=== PATIENT | female | born 1950 | race Caucasian/White ===

== ENCOUNTER 2017-02-21 22:32 | Emergency (ER) | payer OTHER ==
[2017-02-21 22:39] VITALS: BP 135/72; PULSE 87; TEMP 100.9; BMI 23.0
--- NOTE | 2017-02-21 22:44 | PDOC ---
History of Present Illness - General Chief Complaint: Cold Symptoms Stated Complaint: FLU LIKE SYMPTOMS Time Seen by Provider: 02/21/17 22:37 - History of Present Illness Initial Comments: This 66-year-old woman with a history of hypertension presents with a one-day history of sore throat/nonproductive cough/ear discomfort/fever. She also has mild body aches. No history of wheezing/shortness of breath. No exposure to school-aged children. No recent travel. No gastrointestinal symptoms noted. Patient's adult daughter, with whom she lives, diagnosed with influenza B yesterday and is currently taking Tamiflu. Daughter has been ill for the last several days. Past History - Past Medical History Allergies/Adverse Reactions: Allergies Allergy/AdvReac Type Severity Reaction Status Date / Time No Known Allergies Allergy Unverified 02/21/17 22:37 Home Medications: Ambulatory Orders Atenolol/Chlorthalidone [Atenolol-Chlorthalidone 50-25] 1 each PO BID 02/21/17 Lipase/Protease/Amylase [Hiram Castellon 36,000 Units Capsule] 1 each PO TID 02/21/17 Losartan Potassium 100 mg PO DAILY 02/21/17 Vitamin B Complex 1 each PO DAILY 02/21/17 - Psycho/Social/Smoking Cessation Hx Suicidal Ideation: No Smoking History: Never smoked Review of Systems - Review of Systems Able to Perform ROS?: Yes Comments:: 12 point review of systems is negative except for what is noted in the history of present illness *Physical Exam - Vital Signs Last Vital Signs Temp Pulse Resp BP Pulse Ox 100.9 F H 87 18 135/72 98 02/21/17 22:37 02/21/17 22:37 02/21/17 22:37 02/21/17 22:37 02/21/17 22:37 - Physical Exam Comments: GENERAL: Tall female, alert and oriented 3, in no acute distress HEAD: Normal with no signs of trauma. EYES: PERRLA, EOMI, sclera anicteric, conjunctiva clear. ENT: Ears normal, nares patent, oropharynx erythematous without exudate or edema. Dry mucous membranes. NECK: Normal range of motion, supple without lymphadenopathy, JVD, or masses. LUNGS: Breath sounds equal, clear to auscultation bilaterally. No wheezes, and no crackles. HEART:Regular rate and rhythm, normal S1 and S2 without murmur, rub or gallop. ABDOMEN:.normal bowel sounds No guarding,tenderness or rebound.No masses No distention. EXTREMITIES: Normal range of motion, no edema. No clubbing or cyanosis. No erythema, or tenderness. NEUROLOGICAL: Cranial nerves II through XII grossly intact. Normal speech. No focal neurological deficits. MUSCULOSKELETAL: Back non-tender to palpation, no CVA tenderness SKIN: Warm, Dry, normal turgor, no rashes or lesions noted. Medical Decision Making - Medical Decision Making Nasopharyngeal swab for rapid influenza testing obtained. Patient given 325 mg Tylenol for measured fever 100.9F (patient states that she is very sensitive to medications and usually takes smallest dose) Rapid influenza testing is negative. Results discussed with the patient and her daughter. Patient will be discharged with instructions to rest and drink plenty of fluids. Patient can take [id number] cough medications/Tylenol as needed for cough or fever. Patient should follow-up with her PMD, within the next few days. She will return to the emergency room if her symptoms worsen or if she develops vomiting/high fever/shortness of breath or severe cough *DC/Admit/Observation/Transfer Diagnosis at time of Disposition: Viral syndrome - Discharge Dispostion Disposition: HOME Condition at time of disposition: Stable - Referrals Referrals: Ann Pfeiffer MD [Primary Care Provider] - - Patient Instructions Printed Discharge Instructions: DI for Viral Upper Respiratory Infection -- Adult Additional Instructions: Rest, drink plenty of warm fluids Use humidifier in room at night Tylenol as needed for pain/fever Return to ER if you have persistent high fever/severe cough Follow-up with Dr. arielle winchester within the next 4-5 days
[2017-02-21] MEDS ORDERED: ACETAMINOPHEN 325 MG TABLET (FP) PO ONE (23:01)
[2017-02-21] MEDS ORDERED: ACETAMINOPHEN 325 MG TABLET (FP) ONE (23:08)
== END 2017-02-22 00:26 | disposition home or self-care (01) ==
LOC: FER 22:32
DX: B34.9 Viral infection, unspecified (principal); I10 Essential (primary) hypertension
CPT/HCPCS: 87804; 99281-25